=== PATIENT | female | born 1940 | race Caucasian/White ===

== ENCOUNTER 2021-06-22 08:00 | Outpatient (CLI) | payer MEDICARE, BC ==
--- NOTE | 2021-06-22 16:04 | XRAY Report ---
PROCEDURE: Ankle 3 View LT INDICATIONS: LEFT ANKLE INJURY TECHNIQUE: 3 views of the ankle were acquired. COMPARISON: None FINDINGS: Bones: There is moderate lateral subluxation of the talus relative to the distal tibia. Moderately di splaced fractures of the medial and lateral malleolus are present. Ankle mortise is normally aligned. No suspicious bony lesions. Soft tissues: No tibiotalar joint effusion. Achilles tendon appears normal. IMPRESSION: Bimalleolar ankle fracture subluxation. Reviewed by: Matilde Frank MD on 06/22/2021 4:02 PM PDT Approved by: Matilde Frank MD on 06/22/2021 4:02 PM PDT Station ID: [id number]
== END 2021-06-22 23:59 | disposition home or self-care (01) ==
LOC: DI.S 08:00
PROVIDERS: ATTEND Nurse Practitioner
DX: S82.842A Displaced bimalleolar fracture of left lower leg, initial encounter for closed fracture (principal)

== ENCOUNTER 2021-07-02 06:16 | Day surgery (SDC) | payer MEDICARE, BC ==
[~2021-07-02 06:16] MED LIST: ACETAMINOPHEN 500 MG TABLET PO ONE; CEFAZOLIN SODIUM IN 0.9 % NACL 2 GM/100 ML BAG IV ONE; CELECOXIB 100 MG CAPSULE PO ONE
[2021-07-02] MEDS ORDERED: LACTATED RINGERS 1,000 ML IV ONE ×2 (07:03→09:48)
--- NOTE | 2021-07-02 07:21 | ANESTHESIA ---
Pre-Anesthesia VS, & Labs - Diagnosis left ankle fracture - Procedure ORIF left ankle Vital Signs: Temp Pulse Resp BP Pulse Ox 36.7 C 68 16 131/60 H 98 07/02/21 06:30 07/02/21 06:30 07/02/21 06:30 07/02/21 06:30 07/02/21 06:30 Height: 5 ft 9 in Weight (kg): 77.2 kg Body Mass Index: 25.1 BMI Classification: Overweight - NPO >8 hours - Is Patient ?: No - Lab Results Lab results reviewed: Yes Home Medications and Allergies Home Medications: Ambulatory Orders Atorvastatin Calcium 40 mg PO QPM 06/25/21 Benazepril HCl 10 mg PO DAILY 06/25/21 Loratadine [Allergy Relief] 10 mg PO DAILY 06/25/21 Multivitamin 1 each PO DAILY 06/25/21 Nebivolol HCl [Bystolic] 5 mg PO DAILY 06/25/21 Vit A/Vit C/Vit E/Zinc/Copper [Preservision Areds Softgel] 1 each PO BID 06/25 Zinc Gluconate [Zinc] 50 mg PO DAILY 06/25/21 hydroCHLOROthiazide [Hydrodiuril] 12.5 mg PO DAILY 06/25/21 Atorvastatin Calcium 40 mg PO QPM 06/25/21 Benazepril HCl 10 mg PO DAILY 06/25/21 Loratadine [Allergy Relief] 10 mg PO DAILY 06/25/21 Multivitamin 1 each PO DAILY 06/25/21 Nebivolol HCl [Bystolic] 5 mg PO DAILY 06/25/21 Vit A/Vit C/Vit E/Zinc/Copper [Preservision Areds Softgel] 1 each PO BID 06/25/21 Zinc Gluconate [Zinc] 50 mg PO DAILY 06/25/21 hydroCHLOROthiazide [Hydrodiuril] 12.5 mg PO DAILY 06/25/21 Allergies/Adverse Reactions: Allergies Allergy/AdvReac Type Severity Reaction Status Date / Time No Known Drug Allergies Allergy Verified 06/25/21 15:21 Anes History & Medical History - Anesthetic History Anesthesia Complications: reports: No previous complications Family history of Anesthesia Complications: Denies Family history of Malignant Hyperthermia: Denies - Medical History Cardiovascular: reports: Hypertension, High cholesterol Pulmonary: reports: None Gastrointestinal: reports: None Urinary: reports: None Musculoskeletal: reports: Osteoarthritis Endocrine/Autoimmune: reports: None Skin: reports: None - Surgical History General: reports: Colonoscopy Orthopedic: reports: Spine surgery, Other Exam General: Alert, Oriented x3, Cooperative, No acute distress Dental: WNL Mouth Openin Fingerbreadth Neck Mobility: Normal Mallampati classification: II Respiratory: Lungs clear, Normal breath sounds, No respiratory distress, No accessory muscle use Cardiovascular: Regular rate, Normal S1, Normal S2, No murmurs Plan Anesthesia Type: General, Popliteal Block, Adductor Block Consent for Procedure(s) Verified and Reviewed: Yes Code Status: Attempt Resuscitation ASA classification: 2-Mild systemic disease Is this case an emergency?: No
[2021-07-02] MEDS ORDERED: ONDANSETRON 4 MG/2 ML VIAL IVP PRN (07:22)
[2021-07-02] MEDS ORDERED: HYDROmorphone 0.5 MG/0.5 ML SYRINGE IVP PRN (07:22)
[2021-07-02] MEDS ORDERED: MORPHINE 2 MG/ML CARPUJECT IVP PRN (07:22)
[2021-07-02] MEDS ORDERED: ATROPINE ABBOJECT 1 MG/10 ML SYRINGE IVP PRN (07:22)
[2021-07-02] MEDS ORDERED: NALOXONE 0.4 MG/ML VIAL IVP PRN (07:22)
[2021-07-02] MEDS ORDERED: fentaNYL 100 MCG/2 ML VIAL IVP PRN (07:22)
[2021-07-02] MEDS ORDERED: oxyCODONE 5 MG TABLET PO PRN (07:41)
[2021-07-02] MEDS ORDERED: KETOROLAC 15 MG/ML VIAL IVP STA (07:41)
[2021-07-02] MEDS ORDERED: LACTATED RINGERS 1,000 ML IV SCH (08:00)
[2021-07-02] MEDS ORDERED: fentaNYL 100 MCG/2 ML VIAL ONE ×2 (08:07→08:43)
[2021-07-02] MEDS ORDERED: ONDANSETRON 4 MG/2 ML VIAL ONE (08:07)
[2021-07-02] MEDS ORDERED: LIDOCAINE-MPF 2% 5 ML VIAL ONE (08:07)
[2021-07-02] MEDS ORDERED: PROPOFOL 200 MG/20 ML VIAL IVP ONE (08:07)
[2021-07-02] MEDS ORDERED: ROPIVACAINE 0.5% PF 20 ML AMPULE ONE (08:07)
--- NOTE | 2021-07-02 09:46 | OPERATIVE REPORT ---
Operative Report - General Procedure Date: 07/02/21 Planned Procedure: Open reduction internal fixation trimalleolar fracture left ankle Pre-Op Diagnosis: Closed, displaced trimalleolar fracture left ankle Procedure Performed: Open reduction internal fixation lateral malleolus And distal syndesmosis utilizing the Arthrex fibular lock fibular nail system: 3 mm x 130 mm fibular violet, locked proximally and distally, syndesmosis tight rope Endobutton Post Op Diagnosis: Same as preoperative diagnosis - Procedure Note Primary Surgeon: Misael Kent MD Secondary Surgeon: Kaleb SAUL Anesthesia Provider: Rajeev Hdz CRNA Anesthesia Technique: General ET tube, Regional block Estimated Blood Loss (mL): 10 Indications: This is an ambulatory 81-year-old woman with a history of fall and isolated injury to left ankle. She has not had previous problems with the left ankle but sustained a closed, displaced trimalleolar fracture subluxation of the left ankle. This is a unstable ankle fracture with disruption of the ankle mortise to left ankle with fracture of the lateral malleolus above the joint line, transverse fracture of the medial malleolus at the joint line and a posterior malleolar fracture. Her skin was intact. Her skin is atrophic, absent hair distribution to foot but intact pulses, mildly reduced, no vascular compromise Findings: Closed, displaced trimalleolar fracture subluxation left ankle with talus being displaced in a lateral direction with the displaced lateral malleolus fracture. The transverse fracture of the medial malleolus also was displaced and the posterior malleolus fracture also slightly displaced. Complications: None - Other Other Information/Narrative: The patient was brought to the operating room. She has been given a popliteal and adductor canal block. She was given a general endotracheal anesthesia. She was placed supine on the operating room table, foam leg bolster, bump beneath the left hip and a pneumatic tourniquet to proximal left thigh. The left lower extremity was prepped and draped in sterile manner in the usual fashion. A timeout procedure was performed by the entire operating room team and all were in agreement. A minimally invasive procedure was felt to be most appropriate for this geriatric ankle fracture in which complication rate is relatively high because of skin healing issues, decreased circulation and osteoporotic bone. A Arthrex fibula violet system was utilized. The fracture was reduced with a bump, traction and inversion/plantarflexion. The fracture reduced. The C-arm image intensifier was used intermittently throughout the procedure to obtained biplanar and oblique images. The C arm was covered with a sterile drape.With the 1.6 mm guidewire was inserted through a incision made approximately 1 cm distal to the lateral malleolus the pin was placed at the tip of the lateral malleolus and directed midline distally and proximally. The pin position was confirmed with biplanar imaging and was centered well. A cannulated 6.2 mm drill bit was then utilized, followed by a 3.2 mm drill bit more proximally. The 3 mm x 130 mm fibular nail was assembled with its guide. The guidewire was removed and the nail was inserted with its out regular with the outrigger facing directly lateral to the leg. The tip of the nail distally was countersunk about a centimeter. The talons of the violet were deployed to engage the cortex proximally. Distal locking screws were inserted, 2.7 mm through small stab incisions. 2 lateral to medial screws were inserted and 1 anterior to posterior screw. 3 screws were inserted distally. Syndesmotic fixation was then achieved, again using a small stab incision, 3.7 mm drill guide. The drill guide was inserted to obtain 4 cortices. The tight rope was inserted, pushed medially beyond the medial cortex. The Endobutton was deployed and brought up against the medial cortex. This provided excellent fixation to tension. The button was pushed against the fibula and the Endobutton was then tensioned using the handles provided. The syndesmosis was tensioned with the ankle in neutral dorsiflexion. Intraoperative x-rays were obtained and showed very good alignment of the trimalleolar fracture including medial and posterior malleolar fractures. The ankle mortise was stabilized. An external rotation stress test was performed and there was no sign of radiographic laxity. I do not want to add more skin incisions to this compromised ankle as the ankle mortise was stable and The lateral malleolus was also in good position. The small incisions were closed with simple, interrupted 3-0 nylon, atraumatic technique. Xeroform, dry sterile gauze and a well-padded short leg posterior fiberglass splint was applied to left lower leg. She received 2 g of Ancef intravenously. She tolerated the procedure well. A tourniquet had been applied to the proximal left thigh but was not utilized. A physician medical laboratory assistant was utilized to help with positioning, draping, facilitate reduction and insertion of internal fixation, wound closure and splint application.the medial and posterior malleoli are in good position.
[2021-07-02] MEDS ORDERED: HYDROmorphone 0.5 MG/0.5 ML SYRINGE ONE ×2 (10:08→10:24)
[2021-07-02] MEDS ORDERED: KETOROLAC 15 MG/ML VIAL ONE (10:29)
[2021-07-02] MEDS ORDERED: oxyCODONE 5 MG TABLET ONE (10:57)
[2021-07-02 12:07] VITALS: BP 119/45
--- NOTE | 2021-07-02 13:56 | ANESTHESIA POST OP EVALUATION ---
Anesthesia Post Eval - Post Anesthesia Eval Vitals: Last Vital Signs Temp 36.6 C 07/02/21 11:34 Pulse 16 L 07/02/21 12:04 Resp 16 07/02/21 12:04 BP 119/45 L 07/02/21 12:04 Pulse Ox 97 07/02/21 12:04 CV Function Including HR & BP: Stable Pain Control: Satisfactory Nausea & Vomiting: Negative Mental Status: Baseline Respiratory Status: Airway Patent Hydration Status: Satisfactory Anesthesia Complications: None
--- NOTE | 2021-07-02 14:33 | XRAY Report ---
PROCEDURE: OR C-Arm Procedure INDICATIONS: ankle orif-left, or 2 TECHNIQUE: 3 intraoperative fluoroscopic images of left ankle were obtained. COMPARISON: Ankle radiograph dated 06/22/2021. FINDINGS: Intraoperative fluoroscopic images shows internal fixation of distal fibular shaft and distal tibiofi bular syndesmosis. Ankle alignment is anatomic. Total fluoroscopy time is 1 minute and 11 seconds IMPRESSION: Fluoroscopy guidance was provided intraoperatively for ORIF of left ankle. Reviewed by: Dustin Jones MD on 07/02/2021 2:31 PM PST Approved by: Dustin Jones MD on 07/02/2021 2:31 PM PST Station ID: [id number]
== END 2021-07-02 06:17 | disposition home or self-care (01) ==
LOC: SDS 06:16
PROVIDERS: ATTEND Orthopaedic Surgery
DX: S82.852A Displaced trimalleolar fracture of left lower leg, initial encounter for closed fracture (principal)
CPT/HCPCS: 27822; A9270; C1713; J0690; J1170; J7120

== ENCOUNTER 2021-08-10 10:30 | Outpatient (CLI) | payer MEDICARE, BC ==
--- NOTE | 2021-08-10 14:49 | XRAY Report ---
PROCEDURE: Ankle 3 View LT INDICATIONS: DISPLACED TRIMALLEOLAR FX OF LEFT LOWER LEG, POST OPERATIVE CARE TECHNIQUE: 3 views of the ankle were acquired. COMPARISON: 06/22/2021 FINDINGS: Bones: Postoperative changes intramedullary violet placement in the distal fibula and syndesmotic button placement. There is normal Soft tissues: No tibiotalar joint effusion. Achilles tendon appears normal. IMPRESSION: Postoperative changes of ORIF for a displaced trimalleolar fracture with anatomic alignm ent of the fragments. Reviewed by: Norman Ramirez on 08/10/2021 1:48 PM [facility]UL[facility] Approved by: Norman Ramirez on 08/10/2021 1:48 PM [facility] Station ID: [id number]
== END 2021-08-10 23:59 | disposition home or self-care (01) ==
LOC: DI.N 10:30
PROVIDERS: ATTEND Physician Assistant
DX: S82.852A Displaced trimalleolar fracture of left lower leg, initial encounter for closed fracture (principal); Z48.89 Encounter for other specified surgical aftercare

== ENCOUNTER 2024-01-05 10:22 | Outpatient (CLI) | payer MEDICARE, BC ==
--- NOTE | 2024-01-05 17:21 | CT Report ---
PROCEDURE: Head WO INDICATIONS: VERTIGO TECHNIQUE: Noncontrast 4.5 mm thick angled axial sections acquired from the foramen magnum to the vertex. For r adiation dose reduction, the following was used: automated exposure control, adjustment of mA and/or kV according to patient size. COMPARISON: None. FINDINGS: Image quality: There is streak artifact seen through the skull base. CSF spaces: Basal cisterns are patent. No extra-axial fluid collections. Ventricles are normal in size and shape. Brain: No midline shift. No intracranial masses or hemorrhage. [place]-white matter interface is norm al. Age-appropriate brain parenchymal volume loss and chronic small vessel ischemic change can be se en. Skull and face: Calvarium and visualized facial bones are intact, without suspicious lesions. 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 Sinuses: Visualized sinuses and mastoids are clear. IMPRESSION: Head CT within normal limits for age, without a cause of vertigo identified. To the limits of this noncontrast study, no findings of masses or mass effect can be seen. Reviewed by: Kelvin Severino MD on 01/05/2024 4:20 PM [facility] Approved by: Kelvin Severino MD on 01/05/2024 4:20 PM [facility] Station ID: [id number]
== END 2024-01-05 10:23 | disposition home or self-care (01) ==
LOC: DI 10:22
PROVIDERS: ATTEND Emergency Medicine
DX: A88.1 Epidemic vertigo (principal)